=== PATIENT | female | born 1970 | race Caucasian/White ===

== ENCOUNTER 2019-02-27 06:23 | Day surgery (SDC) | payer BC, OTHER ==
[~2019-02-27] VITALS: Ht 170.2 cm; Wt 82.2 kg
[~2019-02-27 06:23] MED LIST: NO ACTIVE MEDS
[2019-02-27 07:08] VITALS: Ht 170.2 cm; Wt 82.2 kg
--- NOTE | 2019-02-27 07:19 | PREAC ---
Date/Time of Note Date/Time of Note DATE: 02/27/19 TIME: 07:18 Anesthesia Eval and Record Evaluation Time Pre-Procedure Interview DATE: 02/27/19 TIME: 07:18 Age 48 Sex female NPO: 8 hrs Preoperative diagnosis SCREENING Planned procedure COLONOSCOPY Past Medical History Past Medical History: Includes GI: Obesity Surgery & Anesthesia Issues No known issue Meds Anticoagulation: No Beta Vic within 24 hr: No Reason Beta Vic not given: Pt. not on B-Vic Reported Medications [No Active Meds] No Conflict Check 02/27/19 Meds reviewed: Yes Allergies Coded Allergies: No Known Allergy (Unverified , 02/27/19) Allergies Reviewed: Yes Labs/Studies Labs Reviewed: Reviewed by anesthesiologist test: Negative Pre-procedure Exam Airway: Adequate mouth opening, Adequate thyromental dist Mallampati: Mallampati II Teeth: Normal Lung: Normal Heart: Normal ASA Physical Status ASA physical status: 2 Emergency: None Planned Anesthetic General/MAC: MAC Planned Pain Management Parenteral pain med Pre-operative Attestations Prior to commencing anesthesia and surgery, the patient was re-evaluated, there was verification of: *The patient's identity *The results of appropriate recent lab work and preoperative vital signs *The above evaluation not changing prior to induction *Anesthetic plan, risk benefits, alternative and complications discussed with patient/family; questions answered; patient/family understands, accepts and wishes to proceed. GISELLE YE Feb 27, 2019 07:19
[2019-02-27] MEDS ORDERED: PROPOFOL 60 ML ONE (07:21)
[2019-02-27] MEDS ORDERED: LIDOCAINE 2% (SDV) 5 ML INJ ONE (07:21)
[2019-02-27] MEDS ORDERED: FENTAnyl 50 MCG/ML VIAL IV PRN ×2 (07:30)
[2019-02-27] MEDS ORDERED: hydrALAzine 20 MG INJ IV PRN (07:30)
[2019-02-27] MEDS ORDERED: EPHEDrine 25 MG/5 ML SYG IV PRN (07:30)
[2019-02-27] MEDS ORDERED: LABETALOL HCL 20MG INJ IV PRN (07:30)
[2019-02-27 07:34] VITALS: BP 115/66; PULSE 74; RESP 16
--- NOTE | 2019-02-27 08:38 | PAC ---
Date/Time of Note Date/Time of Note DATE: 02/27/19 TIME: 08:38 Post-Anesthesia Notes Post-Anesthesia Note Last documented vital signs Vital Signs Date Temp Pulse Resp B/P (MAP) Pulse Ox O2 O2 Flow FiO2 Time Delivery Rate 02/27/19 98.4 74 16 115/66 99 Room Air 0838 (82) Activity: WNL Respiratory function: WNL Cardiovascular function: WNL Mental status: Baseline Pain reasonably controlled: Yes Hydration appropriate: Yes Nausea/Vomiting absent: Yes GISELLE YE Feb 27, 2019 08:38
== END 2019-02-27 10:51 | disposition home or self-care (01) ==
LOC: GIL 06:23
PROVIDERS: ATTEND Internal Medicine Gastroenterology
DX: Z12.11 Encounter for screening for malignant neoplasm of colon (principal); D12.5 Benign neoplasm of sigmoid colon; D12.8 Benign neoplasm of rectum; K64.4 Residual hemorrhoidal skin tags
CPT/HCPCS: 45380; 84703; 88305; Z7610

== ENCOUNTER → 2019-03-06 | Day surgery (SDC) | payer OTHER ==
[~2019-03-06] VITALS: Ht 170.2 cm; Wt 82.0 kg
[2019-03-06 09:49] VITALS: Ht 170.2 cm; Wt 82.0 kg
[2019-03-06 13:20] VITALS: BP 144/73; PULSE 66; RESP 16
== END | disposition home or self-care (01) ==
LOC: SDS 08:55
PROVIDERS: ATTEND Obstetrics & Gynecology
DX: D25.9 Leiomyoma of uterus, unspecified (principal)
CPT/HCPCS: 58563; J0690; J1100; J1170; J1885; J2001; J2175; J2250; J2405; J3010; Z7512; Z7610; 88305